=== PATIENT | male | born 1995 | race African-American/Black ===

== ENCOUNTER 2020-03-14 08:40 | Emergency (ER) | payer BC, SELFPAY ==
[2020-03-14 08:52] VITALS: BP 153/80; PULSE 95; RESP 24; TEMP 37.2; O2SAT 98
--- NOTE | 2020-03-14 08:57 | ED.LOWEXIN ---
HPI - Extremity Injury (Lower) General Chief Complaint: Extremity Injury, Lower Stated Complaint: toe pain Time Seen by Provider: 03/14/20 08:57 Source: patient and RN notes reviewed History of Present Illness HPI Narrative: Patient is a 24-year-old male who presents the urgent care with complaints of right great toe pain and swelling. Patient states that it started a couple days ago and seems to have gotten worse. Patient does have his yearly appointment with his technician assistant on Tuesday but did not think he could wait. Patient is diabetic and is worried about infection. Patient also reports of wearing steel toed boots for work which seems to be making it worse . No other acute complaints. Denies any fever, chills, nausea, vomiting. No acute distress noted. Patient read the plan of care. Related Data Home Medications Medication Instructions Recorded Confirmed insulin aspart U-100 [Novolog 1 sliding scale dose SUBCUT 03/14/20 03/14/20 U-100 Insulin aspart] USEASDIRECTD Allergies Allergy/AdvReac Type Severity Reaction Status Date / Time No Known Allergies Allergy Verified 03/14/20 09:08 Review of Systems Review of Systems: Narrative: CONSTITUTIONAL: Denies fever, chills, or sweats. EYES: Denies visual changes, redness, or discharge. ENT: Denies rhinorrhea, congestion, sore throat, or otalgia. CARDIOVASCULAR: Denies chest pain, palpitations, or edema. RESPIRATORY: Denies cough or dyspnea. GASTROINTESTINAL: Denies abdominal pain, nausea, vomiting, or diarrhea. GENITOURINARY: Denies dysuria or hematuria. SKIN: Denies rash or itching. MUSCULOSKELETAL: Reports of right great toe pain and swelling with redness NEUROLOGIC: Denies headache, numbness, or weakness. All other systems reviewed are negative, except as documented in HPI. PMFSH Comments At the time of my signature, I reviewed and agree with the nursing past medical, surgical, social, and family history. There is no relevant family history pertinent to the patient complaint. Exam Narrative: Exam Narrative: GENERAL: This is a well-nourished, well-developed patient, in no apparent distress. HEAD: normocephalic, atraumatic. EYES: PERRL. Sclera clear/white. Vision is grossly intact. EARS: External ears normal NOSE: External nose normal with no obvious nasal discharge THROAT: Mucous membranes moist NECK: Neck supple SKIN: warm, intact with no suspicious lesions or rash, good texture and turgor. NEURO: awake, alert, and oriented to person, place and time. There were no obvious focal neurologic abnormalities. EXTREMITIES: Mild erythema and edema noted to the right great toe without tenderness. Positive strong right pedal pulse with capillary refill less than 2 seconds. Course Vital Signs Vital signs: Vital Signs Temperature 98.9 F 03/14/20 08:52 Pulse Rate 95 03/14/20 08:52 Respiratory Rate 24 H 03/14/20 08:52 Blood Pressure 153/80 H 03/14/20 08:52 Pulse Oximetry 98 03/14/20 08:52 Temperature 98.9 F 03/14/20 08:52 Pulse Rate 95 03/14/20 08:52 Respiratory Rate 24 H 03/14/20 08:52 Blood Pressure 153/80 H 03/14/20 08:52 Pulse Oximetry 98 03/14/20 08:52 Reviewed?patient is informed that they may have pre-hypertension or hypertension based on a blood pressure reading in the department. I recommend the patient call the primary care provider listed on their discharge instructions or a physician of their choice this week to arrange follow-up for further evaluation of possible pre-hypertension or hypertension. MDM - Extremity Injury (Lower) MDM Narrative Medical decision making narrative: Advised the patient to soak the right great toe twice a day and plain Dial soap and water or may use plain Epson salt soaks. Warm water is sufficient, you do not need to use scorched and water. Complete oral antibiotic regimen as prescribed. Make sure to eat and drink with the medication. Speak to your technician assistant regarding a toe separator. Make sure to ta
== END 2020-03-14 09:15 | disposition home or self-care (01) ==
PROVIDERS: Emergency Provider Nurse Practitioner Family; PCP Nurse Practitioner Family
DX: L03.031 Cellulitis of right toe (principal); E11.9 Type 2 diabetes mellitus without complications; Z79.4 Long term (current) use of insulin; Z96.41 Presence of insulin pump (external) (internal); R03.0 Elevated blood-pressure reading, without diagnosis of hypertension
CPT/HCPCS: 99213; G0463

== ENCOUNTER 2024-08-16 08:11 | Emergency (ER) | payer BC, SELFPAY ==
--- NOTE | 2024-08-16 08:34 | ED.URI ---
HPI - URI/Sore Throat General Chief Complaint: Upper Respiratory Infection Stated Complaint: Vomiting/Fever/Chest Congestion Source: patient, RN notes reviewed and old records reviewed Mode of arrival: ambulatory Limitations: no limitations History of Present Illness HPI Narrative: 28-year-old male presents to [facility] with complaints of fever, body aches, chest congestion, and vomiting for the past 3 days. Patient reports last time he vomited was at 3:00 a.m. has been drinking Pedialyte has also been taking Tylenol and ibuprofen for fevers up to 102F last night. Patient is a type 1 diabetic on insulin pump and Dexcom with blood sugar reading to 209 at this time. Patient reports some rib discomfort laterally on both sides related to cough which is productive at times. MD elicited complaint: fever, cough and other (Vomiting) Onset (ago): day(s) (3) Severity: moderate Able to tolerate fluids by mouth: Yes Treatments prior to arrival: acetaminophen and ibuprofen Related Data Home Medications Medication Instructions Recorded Confirmed insulin aspart U-100 100 unit/mL 1 sliding scale dose subcut 03/14/20 08/16/24 subcutaneous solution (Novolog USEASDIRECTD U-100 Insulin aspart) betamethasone valerate 0.1 % lotion topical 08/16/24 08/16/24 insulin lispro 100 unit/mL 08/16/24 subcutaneous solution (Humalog U-100 Insulin) lisinopril 5 mg tablet 5 mg PO DAILY 08/16/24 08/16/24 Allergies Allergy/AdvReac Type Severity Reaction Status Date / Time No Known Allergies Allergy Verified 03/14/20 09:08 Review of Systems Review of Systems: CONSTITUTIONAL: Reports malaise, chills, sweats, or fever. EYES: Denies visual changes, redness, or discharge. ENT: Reports rhinorrhea, congestion, no sinus pain, no otalgia and positive for some sore throat. CARDIOVASCULAR: Denies chest pain, palpitations, or edema. RESPIRATORY: Reports cough.? Denies dyspnea. GASTROINTESTINAL: Denies abdominal pain, positive for nausea, vomiting, denies diarrhea SKIN: Denies rash or itching. MUSCULOSKELETAL: Reports myalgia. NEUROLOGIC: Denies headache. All systems reviewed & are unremarkable except as noted in HPI and below PMFSH Past Medical History Medical History (Updated 08/18/24 @ 23:38 by Deandra Pete NP) Diabetes mellitus Type I Hypertension Social History Social History (Updated 08/16/24 @ 09:09 by Deandra Pete NP) Smoking status: Never smoker Gender identity (if verbalized by the patient): Male Comments At time of signature, agree with nursing past medical, surgical, social and family history. There is no relevant family history pertinent to the presenting complaint Exam Narrative: GENERAL: Well-appearing, well-nourished, and in no acute distress. HEAD: Normocephalic EYES: PERRLA, conjunctivae clear ENT: Nares clear, turbinates edematous and erythematous, clear discharge. Mucous membranes moist. TM pearly bartholomew with dull light reflex bilaterally; no tragal tenderness. Oropharynx erythematous without lesions. Tonsils mildly enlarged and without exudate, no drooling, no hoarseness, no trismus, uvula midline.post nasal drainage NECK: Supple. No lymphadenopathy CHEST: Clear to auscultation, breath sounds equal. No wheezing, rhonchi, rales, or stridor. No respiratory distress, speaks in full sentences. productive cough SAO2 98 % on room air HEART: Regular rate and rhythm. No murmur heard. SKIN: Warm, dry, no rash. NEURO: Alert and oriented x3. PSYCH: Normal mood and affect Course Course Emergency Course: Patient is aware of diagnosis, understands and agrees to treatment plan.? Anticipatory guidance given.? Patient agrees to follow-up as directed and is aware of reasons to seek care at the emergency department. Portions of this record may have been created with voice recognition software Level of Care: Express Care Visit Vital Signs Vital signs: Vital Signs Temperature 36.8 C 08/16/24 08:47 Pulse Rate 85 08/16/24 08:47 Respiratory Rate 16 08/16/24 08:47 Blood Pressure 140/87 08/16/24 08:47 Pulse Oximetry 98 08/16/24 08:47 Oxygen Delivery Room Air 08/16/24 08:47 Temperature 36.8 C 08/16/24 08:47 Pulse Rate 85 08/16/24 08:47 Respiratory Rate 16 08/16/24 08:47 Blood Pressure 140/87 08/16/24 08:47 Pulse Oximetry 98 08/16/24 08:47 Oxygen Delivery Room Air 08/16/24 08:47 Reviewed MDM - URI/Sore Throat MDM Narrative Medical decision making narrative: Differential diagnosis considered: Escobar virus, strep pharyngitis, allergic rhinitis, upper respiratory tract infection, sinusitis, rhinosinusitis, nasopharyngitis. viral pharyngitis, otitis media, otitis externa, pneumonia, bronchitis, viral cough syndrome, viral syndrome, and influenza.? Exam findings show no acute concerns or changes; patient is non-toxic appearing and is in no distress.? Patient is appropriate for outpatient treatment and follow-up. Differential Diagnosis Differential diagnosis: Likely upper respiratory infection, viral infection, pharyngitis and other (nausea and vomiting, acute cough) Medical Records Attestation: I reviewed the patient's medical records. Lab Data Attestation: I reviewed the patient's lab results. Lab results narrative: COVID antigen negative, Influenza A negative , Influenza B negative Labs: Lab Results 08/16/24 08/16/24 Range/Units 09:21 09:22 POC Influenza A Ag Negative (Negative) POC Influenza B Ag Negative (Negative) POC SARS CoV-2 Ag Negative (Negative) reviewed Critical Care Time Critical Care Time Critical Care Time: No Discharge Plan Discharge Clinical Impression: Upper respiratory infection with cough and congestion, Nausea & vomiting Patient Disposition: Home, Self-Care Condition: Stable Instructions: Antibiotic Form, Upper Respiratory Infection (ED), Acute Nausea and Vomiting (ED), Acute Cough (ED) Additional Instructions: Increase fluids especially juices and water [id number] cough and cold medicine of your choice for your symptoms Continue your inhaler/nebulizer as directed Zyrtec Claritin or Roxane daily include Coricidin brand decongestant Tylenol or ibuprofen for any fever pain heat to the face 20-30 minutes 4-6 times a day for pain Salt water gargles, throat lozenges or throat sprays as desired Antibiotic as directed--finished the medication Zofran for nausea and vomiting If your symptoms persist, change or worsen significantly before you can contact your personal physician then please, without delay, go to the emergency department for further evaluation. Follow-up with PCP in 7-10 days or sooner if needed Follow up with PCP soon in regards to your blood pressure which is elevated above threshold for referral. Blood pressure above 120/80 may indicate pre-hypertension. Monitor blood sugars carefully avoid any spicy foods, caffeine products, light diet Prescriptions: New amoxicillin-pot clavulanate 875-125 mg tablet 1 tablet PO Q12H Qty: 20 0RF Rx Instructions: Take all medication use probiotic while on this medicine was take with food ondansetron 4 mg tablet,disintegrating 4 mg PO Q6H PRN (Reason: nausea and vomiting) Qty: 20 0RF albuterol sulfate 90 mcg/actuation HFA aerosol inhaler 2 puff inhalation QID PRN (Reason: shortness of breath or wheezing) Qty: 6.7 0RF No Action insulin aspart U-100 [Novolog U-100 Insulin aspart] 100 unit/mL Solution 1 sliding scale dose SUBCUT USEASDIRECTD Rx Instructions: INSULIN PUMP betamethasone valerate 0.1 % lotion TOPICAL lisinopril 5 mg tablet 5 mg PO DAILY insulin lispro [Humalog U-100 Insulin] 100 unit/mL solution Rx Instructions: as directed Follow-up/Referrals: PHYSICIAN,CABLE CUTTER AND SWAGER [Primary Care Provider] - Stand Alone Forms: Work/School Release IP Time of Disposition: 09:33 Quality Yves Coma Scale Eyes: Open Verbal: Oriented and Alert Motor: Follows Commands [place]ar[place] Coma Total Score: 15
[2024-08-16 08:47] VITALS: BP 140/87; PULSE 85; RESP 16; TEMP 36.8; O2SAT 98
[2024-08-16 09:23] LABS: EDINFLUASCREEN Negative (Negative); EDINFLUBSCREEN Negative (Negative)
[2024-08-16 09:23] LABS: EDCOVIDSCREEN Negative (Negative)
== END 2024-08-16 09:53 | disposition home or self-care (01) ==
PROVIDERS: Emergency Provider Registered Nurse
DX: J06.9 Acute upper respiratory infection, unspecified (principal); R05.9 Cough, unspecified; R11.2 Nausea with vomiting, unspecified; Z20.822 Contact with and (suspected) exposure to COVID-19; E10.9 Type 1 diabetes mellitus without complications; I10 Essential (primary) hypertension
CPT/HCPCS: 87426; 87804; 99213; G0463

== ENCOUNTER 2024-11-23 12:48 | Emergency (ER) | payer BC, SELFPAY ==
[2024-11-23 12:52] VITALS: BP 159/98; PULSE 95; RESP 16; TEMP 36.9; O2SAT 100
--- OUTSIDE RECORDS SUMMARY | 2024-11-23 12:55 | XMS_ITS | Clinical Summary ---
Author Organization [facility] Address [address] [place] [address] Phone Care Team Providers Care Guard Immigration Name Role Phone Brad Pillai APRN, GABRIELLE Primary Care Provider Allergies No known active allergies Medications HUMALOG 100 UNIT/ML Solution 7 Active famotidine (PEPCID) 10 MG Tablet Take 1 Tab by mouth 2 times daily. 180 Tab 7 Active Additional Information Patient not taking.Reported on 06/21/2018 ondansetron (ZOFRAN-ODT) 4 MG TABLET DISPERSIBLE Take 1 Tab by mouth every 8 hours as needed for Nausea. 10 Tab 8 Active Additional Information Patient not taking.Reported on 06/21/2018 loperamide (IMODIUM) 2 MG Capsule Take 1 Cap by mouth as needed for Diarrhea. 30 Cap 8 Active Additional Information Patient not taking.Reported on 06/21/2018 ROSENDO CONTOUR NEXT TEST Strip TEST FOUR TIMES DAILY 400 Strip 3 8 Active Additional Information Patient not taking.Reported on 06/21/2018 albuterol 108 (90 Base) MCG/ACT Aerosol Solution take 2 Puffs by inhalation every 4 hours as needed for Wheezing. 8.5 g 8 Active Additional Information Patient not taking.Reported on 11/08/2018 predniSONE (DELTASONE) 20 MG Tablet 3 po q am times 2 days 2 po q am times 2 days 1 po q am times 3 days take medication in am with food. 13 Tab 8 Active Additional Information Patient not taking.Reported on 11/08/2018 dicyclomine (BENTYL) 10 MG Capsule Take 1 Cap by mouth 3 times daily. 12 Cap 9 Active Active Problems Problem Noted Date Diagnosed Date Type 1 diabetes mellitus without complication Chest pain 08/29/2017 Elevated troponin 08/29/2017 Nausea and vomiting 08/29/2017 Social History Tobacco Use Types Packs/Day Years Used Date Smoking Tobacco: Never Smokeless Tobacco: Never Tobacco Cessation:Ready to Q uit: No; Counseling Given: Yes Alcohol Use Standard Drinks/Week Comments No 0 (1 standard drink = 0.6 oz pur e alcohol) Sexually Active Control Partners Comments Yes Female Sex and Gender Information Value Date Recorded Sex Assigned at Not on file Legal Sex Male 7:59 PM CDT Gender Identity Not on file Sexual Orientation Not on file Last Filed Vital Signs Vital Sign Reading Time Taken Comments Blood Pressure 101/76 11/08/2018 2:47 PM DETAIL SERGEANT Pulse 77 11/08/2018 2:47 PM DETAIL SERGEANT Temperature 36.8 C (98.2 F) 11/08/2018 2:47 PM DETAIL SERGEANT Respiratory Rate 16 11/08/2018 2:47 PM DETAIL SERGEANT Oxygen Saturation 98% 11/08/2018 2:47 PM DETAIL SERGEANT Inhaled Oxygen Concentration - - Weight 81.6 kg (180 lb) 11/08/2018 2:47 PM DETAIL SERGEANT Height 175.3 cm (5' 9 ) 11/08/2018 2:47 PM DETAIL SERGEANT Body Mass Index 26.58 11/08/2018 2:47 PM DETAIL SERGEANT Plan of Treatment Health Maintenance Due Date Last Done Comments Diabetes: Eye Exam 1995 Diabetes: Foot Exam 1995 Hepatitis C Virus (HCV) Screening 1995 Pneumococcal Immunization Combined (2 of 3 - PCV) 10/04/1998 10/04/1997 Diabetes: Hemoglobin A1c 02/26/2018 017, 12/01/2016, 10/07/2016, Additional history exists Diabetes: Nephropathy Screening 12/07/2018 12/07/2017, 08/28/2017, 02/03/2016 Influenza Immunization (#1) 06/17/202408/17, 06/26/1997, 08/07/1996 SARS-COV-2 Immunization (2023-25 season) 2024 Respiratory Syncytial Virus (RSV) Immunization (Adult) (1 - 1-dose 75+ series) 2070 Hepatitis B Immunization Completed 996, 1995, 1995 Meningococcal Immunization (ACWY) Aged Out 10/09/2008 No longer eligible based on patient's age to complete this topic DTaP/Tdap/Td Immunization Discontinued 2015, 01/27/2000, 04/29/1997, Additional history exists TdaP Immunization Completed 11/28/2015 Rotavirus Immunization Aged Out No lo nger eligible based on patient's age to complete this topic Procedures Procedure Name Priority Date/Time Associated Diagnosis Comments CMP (COMPREHENSIVE METABOLIC PANEL) STAT 12/07/2017 3:15 PM DETAIL SERGEANT HEMOGLOBIN A1C W/ ESTIMATED GLUCOSE Routine 08/29/2017 5:38 AM DETAIL SERGEANT from Last 3 Months or Most Recently Relevant to Health Maintenance Results * (ABNORMAL) CMP (Comprehensive Metabolic Panel) (12/07/2017 3:15 PM DETAIL SERGEANT) SODIUM 137 131 - 143 mmol/L 12/07/2017 4:20 PM DETAIL SERGEANT [facility] POTASSIUM 3.6 3.5 - 5.1 mmol/L 12/07/2017 4:20 PM DETAIL SERGEANT [facility] CHLORIDE 100 100 - 110 mmol/L 12/07/2017 4:20 PM [facility] CO2, VENOUS 27 22 - 32 mmol/L 12/07/2017 4:20 PM DETAIL SERGEANT [facility] ANION GAP 13.6 8.0 - 20.0 mmol/L 12/07/2017 4:20 PM DETAIL SERGEANT [facility] GLUCOSE 172(H) 70 - 105 mg/dL 12/07/2017 4:20 PM [facility] BUN 16 10 - 31 mg/dL 12/07/2017 4:20 PM [facility] CREATININE, BLOOD 0.92 0.60 - 1.30 mg/dL 12/07/2017 4:20 PM [facility] BUN/CREATININE RATIO 17 12 - 20 ratio 12/07/2017 4:20 PM [facility] TOTAL PROTEIN 7.6 6.0 - 8.3 g/dL 12/07/2017 4:20 PM [facility] ALBUMIN 4.5 3.5 - 5.2 g/dL 12/07/2017 4:20 PM [facility] A/G RATIO 1.5 1.0 - 2.0 12/07/2017 4:20 PM [facility] CALCIUM 9.4 8.9 - 10.3 mg/dL 12/07/2017 4:20 PM [facility] T BILI 0.5 0.3 - 1.2 mg/dL 12/07/2017 4:20 PM [facility] SGOT (AST) 21 1 - 40 U/L 12/07/2017 4:20 PM [facility] SGPT (ALT) 26 1 - 40 U/L 12/07/2017 4:20 PM [facility] ALKALINE PHOSPHATASE 114 40 - 130 U/L 12/07/2017 4:20 PM [facility] GFR, EST. NONAFRICAN >60 >=60 12/07/2017 4:20 PM [facility] GFR, EST. >60 >=60 12/07/2017 4:20 PM [facility] Comment: Creatinine Clearance is the preferred criteria for selecting drug dose adjustments in renally impaired patients. The GFR is provided as additional pertinent clinical information. GFR is reported in mL/min/1.73 sq m. Blood specimen (specimen) Butterfly Puncture / Unknown 12/07/2017 3:15 PM DETAIL SERGEANT 12/07/2017 3:37 PM DETAIL SERGEANT us Damion Blanco MD CHEMISTRY ORDERABLES Final Result [facility] [address] [place] [address] * (ABNORMAL) Hemoglobin A1C w/ Estimated Glucose (08/29/2017 5:38 AM DETAIL SERGEANT) HGB-A1C 11.5(H) 4.4 - 6.4 % 08/29/2017 6:39 AM DETAIL SERGEANT [facility] Est Average Glucose 283.4 mg/dL 08/29/2017 6:39 AM DETAIL SERGEANT [facility] Blood specimen (specimen) Venipuncture / Unknown 08/29/2017 5:38 AM DETAIL SERGEANT 08/29/2017 5:43 AM DETAIL SERGEANT Narrative [facility] - 08/29/2017 6:39 AM DETAIL SERGEANT HEMOGLOBIN A1C: DIABETIC PATIENTS: WELL-CONTROLLED: 6.2 - 7.0 INTERMEDIATE WELL-CONTROLLED: 7.0 - 9.0 POORLY-CONTROLLED: >9.0 Roman Ruvalcaba MD CHEMISTRY ORDERABLES Final Re sult [facility] [address] [place] [address] from Last 3 Months or Most Recently Relevant to Health Maintenance Insurance MEDICAID [facility] Care Teams Guard Immigration Relationship Specialty Start Date End Date Brad Pillai APRN, BOARDING ROOM FIXER [address] [place] [address] PCP - General Certified Nurse Practitioner 08/29/17
--- OUTSIDE RECORDS SUMMARY | 2024-11-23 12:55 | XMS_ITS | Data Portability ---
Author Organization [place] [facility] [employer], Main Office Address [address] [place] [address] Care Team Providers Care Girls Swimming Coach Name Role Phone KILEY JAIMES Primary Care Provider [phone] Assessment No assessment recorded. Plan of Treatment Reminders Order Date Submit Date Provider Last Modified By Organization Details Last Modified Time Details Appointments None recorded. Lab HbA1c (hemoglob in A1c), blood [address] ([facility]), [address] [place], [address], 3 12:40:03 CMP, serum or plasma [address] ([facility]), [address] [place], [address], 3 12:40:03 lipid panel, serum [address] ([facility]), [address] [place], [address], 3 12:40:03 microalbu min/creat inine, mass ratio, urine [email or web address] [facility] ([facility]), [address] [place], [address], 3 10:37:03 TSH + free T4, serum [address] ([facility]), [address] [place], [address], 3 12:40:03 testoster one, free + total, serum [address] ([facility]), [address] [place], [address], 3 09:16:37 HbA1c (hemoglob in A1c), blood [address] ([facility]), [address] [place], [address], 3 09:16:37 microalbu min/creat inine, mass ratio, urine 2022 023 [facility] ([facility] Scheduling), [address] [place], [address], 3 07:29:34 HbA1c (hemoglob in A1c), blood [address] ([facility]uling), [address] [place], [address], 5 12:33:46 CMP, serum or plasma [address] ([facility]), [address] [place], [address], 5 12:34:22 microalbu min, urine [address] ([facility]), [address] [place], [address], 5 12:37:04 lipid panel, serum [address] ([facility]), [address] [place], [address], 5 12:36:03 CBC w/ auto diff [address] ([facility]), [address] [place], [address], 5 12:35:12 vitamin D, 25-hydrox y, total, serum [address] ([facility]uling), [address] [place], [address], 5 12:35:41 hepatitis C virus Ab, serum [address] ([facility]), [address] [place], [address], 5 12:34:48 Referral endocrino logy referral - Please call patient to schedule an appointme nt. Thank you 2024 025 [facility] [place], [facility] [address], [place], [address], 5 13:20:32 Procedures None recorded. Surgeries None recorded. Imaging None recorded. Medication Orders Gvoke HypoPen 2-Pack 1 mg/0.2 mL subcutane ous auto-inje ctor 2022 [email or web address] [place] [address] [facility] [id number], [address] [place], [place], [id number], 5 12:04:48 tadalafil 20 mg tablet 2022 023 [email or web address] [facility], [address] [place], [place], [id number], 5 12:05:22 Humalog U-100 Insulin 100 unit/mL subcutane ous solution 2024 025 [id number] [address] [facility], [id number], 12:19:21 Patient TargetsNo targets recorded. Patient InstructionsNo instructions recorded. Reason for Referral Endocrinology Referral for U ncontrolled type 1 diabetes mellitus Please call patient to schedule an appointment. Thank you Referring Physician: Violetta Schmid, Family Medicine, Encounter Date: 10/25/2024 Results Created Date Observation Date Name Description Value Unit Range Abnormal Flag Note LastModifiedBy Organization Detail LastModifiedTime 12/02/1912/04/2022 C-PEP TIDE, SERUM C-peptide <0.1 NG/mL 1.1-4. 4 low C-Pep tide refer ence inter barrett is for valei alo casiano nts. Perfo rmed at: [place] [id number] [facility] Lab Direc tor: Miguel hinojosa PhD, Phone : [phone] Not Available [facility] (Lab) [address] [place], [address], 12/04/2022 14:22:09 12/02/19 23 12/02/2022 TSH thyroid-stim ulating hormone 0.933 uIU/m L 0.465- 4.680 Not Available [facility] (Lab) [address] [place], [address], 12/02/2022 22:57:49 12/02/19 23 12/02/2022 T4 FREE free T4 1.31 NG/dL 0.78-2 .19 Not Available [facility] (Lab) [address] [place], [address], 12/02/2022 22:43:31 12/02/19 23 12/02/2022 HEMOG LOBIN A1C HA1C 11.6 % 4.0-6. 0 high Diabe gal Scree apolinar Crite minerva: <5.7% Consi stent with absen ce of diabe gal 5.7-6 .4% Consi stent with incre ased risk for diabe gal (pred iabet es) >OR=6 .5% Consi stent with diabe gal REFER ENCE: Diabe gal Care 2016, 39(Parker ppl.1 ):s13 -s22 Not Available [facility] (Lab) [address] [place], [address], 12/02/2022 21:28:34 12/02/19 23 12/02/2022 LIPID PANEL cholesterol 191 mg/dL 140-19 9 NIH RACHEL NSUS RECOM MENDA TION FOR TORO STERO L: ADULT CHILD LOW RISK: <200 <170 BORDE RLINE : <200- 239 ----- HIGH RISK: >240 >200 Not Available [facility] (Lab) [address] [place], [address], 12/02/2022 21:14:08 12/02/19 23 12/02/2022 LIPID PANEL triglyceride s 105 mg/dL 0-150 NIH RACHEL NSUS REPOR T RECOM MENDA TION FOR TRIGL YCERI JEREMY: ADULT CHILD LOW RISK: <150 ----- BODER LINE: 150-1 99 ----- HIGH RISK: >200 ----- Not Available [facility] (Lab) [address] [place], [address], 12/02/2022 21:14:08 12/02/19 23 12/02/2022 LIPID PANEL HDL cholesterol 48 mg/dL 40- Not Available [facility] (Lab) [address] [place], [address], 12/02/2022 21:14:08 12/02/19 23 12/02/2022 LIPID PANEL LDL cholesterol, calculated 122 mg/dL 0-130 NIH RACHEL NSUS REPOR T RECOM MENDA TIONS FOR LDL: ADULT CHILD LOW RISK <130 <110 (OPTI MAL LDL) <100 ----- BORDE RLINE : 130-1 59 ----- HIGH RISK: >160 >130 A TRIGL YCERI DE RESUL T >400 INVAL IDATE S THE CALCU LATIO N FOR LDL FRACT IONAT ION - THE LDL RESUL T WILL NOT BE REPOR MILLIE. Not Available [facility] (Lab) [address] [place], [address], 12/02/2022 21:14:08 12/02/19 23 12/02/2022 COMPR EHENS ДМИТРИЙ METAB OLIC PANEL sodium 134 mmol/ L 137-14 5 low Not Available [facility] (Lab) [address] [place], [address], 12/02/2022 21:14:05 12/02/19 23 12/02/2022 COMPR EHENS ДМИТРИЙ METAB OLIC PANEL potassium 4.7 mmol/ L 3.5-5. 1 Not Available [facility] (Lab) [address] [place], [address], 12/02/2022 21:14:05 12/02/19 23 12/02/2022 COMPR EHENS ДМИТРИЙ METAB OLIC PANEL chloride 101 mmol/ L 98-107 Not Available [facility] (Lab) [address] [place], [address], 12/02/2022 21:14:05 12/02/19 23 12/02/2022 COMPR EHENS ДМИТРИЙ METAB OLIC PANEL carbon dioxide 23 mmol/ L 22-30 Not Available [facility] (Lab) [address] [place], [address], 12/02/2022 21:14:05 12/02/19 23 12/02/2022 COMPR EHENS ДМИТРИЙ METAB OLIC PANEL anion gap 14.7 mmol/ L 14-22 Not Available [facility] (Lab) [address] [place], [address], 12/02/2022 21:14:05 12/02/19 23 12/02/2022 COMPR EHENS ДМИТРИЙ METAB OLIC PANEL glucose 405 mg/dL 70-99 high Not Available [facility] (Lab) [address] [place], [address], 12/02/2022 21:14:05 12/02/19 23 12/02/2022 COMPR EHENS ДМИТРИЙ METAB OLIC PANEL BUN 17 mg/dL 8-19 Not Available [facility] (Lab) [address] [place], [address], 12/02/2022 21:14:05 12/02/19 23 12/02/2022 COMPR EHENS ДМИТРИЙ METAB OLIC PANEL creatinine 0.93 mg/dL 0.66-1 .25 Not Available [facility] (Lab) [address], [place], [address], 12/02/2022 21:14:05 12/02/19 23 12/02/2022 COMPR EHENS ДМИТРИЙ METAB OLIC PANEL GFR >60 Refer ence Range : [place] ge GFR Healt hy Adult : >60 mL/mi n/1.7 3 m2 Chron ic Kidne y Disea se: 15-60 mL/mi n/1.7 3 m2 Kidne y Failu re: <15/m L/min /1.73 m2 www.n iddk. nih.g ov The MDRD study equat ion has not been valid ated in child kristel <18 years of age; pregn ant women ; the elder ly >85 years of age; or in some racia l or ethni c subgr oups, such as [facility] nics. Outsi de the valid ated abbey eters , estim ated GFR is less accur ate, requi ring clini jennifer judgm ent on a case- by-ca se basis . Clini jennifer inter preta tion for other races and ages must be made by the clini trey. The MDRD study equat ion has not been valid ated for the evalu ation of serum creat inine relat ed to nutri sienna l statu s or medic ation usage . For perso ns <18 years of age, a pedia tric GFR calcu lator is avail able on the [facility] websi te: https ://aiyana w.tomi law.o rg/pr ofess ional s/kdo qi/gf r_cal culat or Not Available [facility] (Lab) [address] [place], [address], 12/02/2022 21:14:05 12/02/19 23 12/02/2022 COMPR EHENS ДМИТРИЙ METAB OLIC PANEL alkaline phosphatase 165 U/L 38-126 high Not Available [facility] (Lab) [address] [place], [address], 12/02/2022 21:14:05 12/02/19 23 12/02/2022 COMPR EHENS ДМИТРИЙ METAB OLIC PANEL alanine aminotransfe rase 36 U/L 0-50 Not Available [facility] (Lab) [address] [place], [address], 12/02/2022 21:14:05 12/02/19 23 12/02/2022 COMPR EHENS ДМИТРИЙ METAB OLIC PANEL aspartate aminotransfe rase 30 U/L 15-46 Not Available [facility] (Lab) [address] [place], [address], 12/02/2022 21:14:05 12/02/19 23 12/02/2022 COMPR EHENS ДМИТРИЙ METAB OLIC PANEL bilirubin, total 0.40 mg/dL 0.20-1 .30 Not Available [facility] (Lab) [address] [place], [address], 12/02/2022 21:14:05 12/02/19 23 12/02/2022 COMPR EHENS ДМИТРИЙ METAB OLIC PANEL calcium 9.1 mg/dL 8.4-10 .2 Not Available [facility] (Lab) [address] [place], [address], 12/02/2022 21:14:05 12/02/19 23 12/02/2022 COMPR EHENS ДМИТРИЙ METAB OLIC PANEL total protein 6.8 g/dL 6.3-8. 2 Not Available [facility] (Lab) [address] [place], [address], 12/02/2022 21:14:05 12/02/19 23 12/02/2022 COMPR EHENS ДМИТРИЙ METAB OLIC PANEL albumin 4.0 g/dL 3.4-5. 0 Not Available [facility] (Lab) [address] [place], [address], 12/02/2022 21:14:05 12/02/19 23 12/02/2022 COMPR EHENS ДМИТРИЙ METAB OLIC PANEL globulin 2.8 g/dL 2.6-4. 2 Not Available [facility] (Lab) [address] [place], [address], 12/02/2022 21:14:05 12/02/19 23 12/02/2022 COMPR EHENS ДМИТРИЙ METAB OLIC PANEL A/G ratio 1.4 ratio 1.0-2. 0 Not Available [facility] (Lab) [address] [place], [address], 12/02/2022 21:14:05 12/02/19 23 12/02/2022 MICRO ALBUM N RNDM W/CRE AT RATIO ur creat 56.40 mg/dL REFER ENCE RANGE NOT ESTAB LISHE D FOR RANDO M URINE CREAT ININE Not Available [facility] (Lab) [address] [place], [address], 12/02/2022 21:12:07 12/02/19 23 12/02/2022 MICRO ALBUM N RNDM W/CRE AT RATIO microalbumin , urine 187.2 mg/L 0.0-16 .6 high Not Available [facility] (Lab) [address] [place], [address], 12/02/2022 21:12:07 12/02/19 23 12/02/2022 MICRO ALBUM N RNDM W/CRE AT RATIO microalbumin /creatinine ratio 332 mcg/m g 0-29 high THE AMERI CAN DIABE GAL ASSOC IATIO N DEFIN ES ABNOR MALIT IES IN ALBUM IN EXCRE TION FOLLO WS: CATEG ORY RESUL T (MCG/ MG CREAT ININE ) EMANUEL L <30 MICRO ALBUM INURI A 30-29 9 CLINI JENNIFER ALBUM INURI A > OR = 300 THE ADA RECOM MENDS THAT 2 OF 2 SPECI MENS COLLE CTED WITHI N A 3- TO 6-MON TH PERIO D BE ABNOR MAL BEFOR E CONSI CAROLINE G A PATIE NT TO HAVE CROSS ED ONE OF THESE DIAGN OSTIC THRES HOLDS . REFER ENCE: DIABE GAL CARE, VOL. 26: S94-S , 2002 Not Available [facility] (Lab) [address] [place], [address], 12/02/2022 21:12:07 04/26/20 23 04/26/2023 MICRO ALBUM N RNDM W/CRE AT RATIO ur creat 81.32 mg/dL REFER ENCE RANGE NOT ESTAB LISHE D FOR RANDO M URINE CREAT ININE Not Available [facility] (Lab) [address] [place], [address], 04/26/2023 21:37:17 04/26/20 23 04/26/2023 MICRO ALBUM N RNDM W/CRE AT RATIO microalbumin , urine 439.0 mg/L 0.0-16 .6 high Not Available [facility] (Lab) [address] [place], [address], 04/26/2023 21:37:17 04/26/20 23 04/26/2023 MICRO ALBUM N RNDM W/CRE AT RATIO microalbumin /creatinine ratio 540 mcg/m g 0-29 high THE AMERI CAN DIABE GAL ASSOC IATIO N DEFIN ES ABNOR MALIT IES IN ALBUM IN EXCRE TION FOLLO WS: CATEG ORY RESUL T (MCG/ MG CREAT ININE ) EMANUEL L <30 MICRO ALBUM INURI A 30-29 9 CLINI JENNIFER ALBUM INURI A > OR = 300 THE ADA RECOM MENDS THAT 2 OF 2 SPECI MENS COLLE CTED WITHI N A 3- TO 6-MON TH PERIO D BE ABNOR MAL BEFOR E CONSI CAROLINE G A PATIE NT TO HAVE CROSS ED ONE OF THESE DIAGN OSTIC THRES HOLDS . REFER ENCE: DIABE GAL CARE, VOL. 26: S94-S Tanesha, MEERA OLVERA 2002 Not Available [facility] ([facility]) [address], [place], [address], 04/26/2023 21:37:17 Result Notes None recorded. 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 Petty Kaba APRN [address], [address], [place], [address] , [facility] 4 14:47:02 Type 1 diabetes mellitus without complicat ion 488766131 Completed 201608/29/2017 Petty Kaba APRN [address], [address], [place], [address] , [facility] 4 14:28:23 Uncontrol led type 1 diabetes mellitus 092983463 Active Not Available [facility] 3 08:57:34 Candidias is of skin 40623057 Active Not Available [facility] 3 08:57:34 Diabetes mellitus 26278758 Active Petty Kaba APRN [address], [address], [place], [address] , [place] 4 14:27:17 Candidias is of mouth 00846672 Active Not Available [facility] 3 08:57:34 Erectile dysfuncti on due to type 2 diabetes mellitus 429917348 Active 2022 Petty Kaba APRN [address], [address], [place], [address] , [facility] 4 14:27:25 Type 1 diabetes mellitus 50725531 Active 2022 Josef Block REHABILITATION SERVICES COUNSELOR-C [address], [address], [place], [address] , [facility] [employer] [facility] 3 09:29:33 Semen volume low: 0.5-1 ml 540382308 Active 2022 Josef Block REHABILITATION SERVICES COUNSELOR-C [address], [place], [address] , [facility] 3 10:29:44 Proteinur ia 29801302 Completed 202206/30/2023 Petty MARY Kaba [address], [place] [address], [place], [address] , [facility] 4 14:28:23 Bone density finding 091485775 Active 2023 Petty Kaba APRN [address], [place] [address], [place], [address] , [facility] [employer] [facility] 4 14:27:15 Problem Notes Documentation Provider Name and Address Organization Details Recorded Time Endocrinology Consult Note : [facility] [address], [facility] [address]KGSZHNVP, Bradley (id #[id number], : 1995) Documents sent via fax will include the following message: This fax may contain sensitive and confidential personal health information that is being sent for the sole use of the intended recipient. Unintended recipients are directed to securely destroy any materials received. You are hereby notified that the unauthorized disclosure or other unlawful use of this fax or any personal health information is prohibited. To the extent patient information contained in this fax is subject to 42 CFR Part 2, this regulation prohibits unauthorized disclosure of these records. If you received this fax in error, please visit [email or web address] to notify the sender and confirm that the information will be destroyed. If you do not have internet access, please call to notify the sender and confirm that the information will be destroyed. Thank you for your attention and cooperation. [ID:[id number]][facility] [employer] [address] [place] [address] , Date: 02/10/2023RE: Lamonte Pfeiffer, : 1995, PT ID #[id number] M Rosas [facility], I would like to thank you for referring Lamonte Pfeiffer to our practice for consultation and evaluation of 4 month follow up GLUCOSE--445 , on 02/10/2023. I have enclosed a copy of the office evaluation for your records. Once again, thank you for allowing me to participate in the care of this patient. Sincerely, Electronically Signed by: EVELYN ISAACS MD Encounter Reason/Date 4 month follow up GLUCOSE--445 02/10/2023 - 10:45AM - [facility] Terry Colbert Problems:Reviewed Problems Dermal mycosis Candidiasis of mouth Candidiasis of skin Diabetes mellitus Type 1 diabetes mellitus uncontrolled Paronychia of toe of right foot - Onset: 03/17/2020 Type 1 diabetes mellitus without complication - Onset: 03/17/2020 Allergies: Reviewed Allergies Dust, pollen Medications: Reviewed Medications NameDate Source BD Ultra-Fine Short Pen Needle 31 gauge x 16 06/03/15 filled MIGRATION.[id number] Contour Next Test StripsTEST THREE TIMES DAILY09/14/18 filled MIGRATION.[id number] Dexcom G6 ReceiverUSE IQPMYFGQ42/11/23 filled MIGRATION.[id number] DEXCOM G6 SENSOR DEVICEChange every 10 days01/10/23 renewed Evelyn Isaacs MD Dexcom G6 Transmitter deviceUSE DIRECTED EVERY 90 DAYS11/26/22 filled MIGRATION.[id number] Glucagon Emergency Kit 1 mg solution for xpdftupzy23/29/19 filled MIGRATION.[id number] Gvoke HypoPen 2-Pack 1 mg/0.2 mL subcutaneous auto-injectorInject 1 mg as needed by subcutaneous route as needed for 1 day.02/10/23 prescribed Evelyn Isaacs MD insulin syringe U-100 with needle 1/2 mL 30 gaugeUSE 3 TO 6 TIMES D1 filled MIGRATION.[id number] ketoconazole 2 % shampooAPPLY TO AFFECTED AREAS, LATHER AND LEAVE IN PALCE FOR 5 MINUTES, THEN RINSE OFF WITH WATER ONCE DAILY10/01/17 filled MIGRATION.[id number] NovoLOG U-100 Insulin aspart 100 unit/mL subcutaneous solutionInject 200 unit(s) every 72 hours by subcutaneous route as directed for 30 days.02/10/23 daniel Isaacs MD OneTouch UltraMini kit07/06/15 filled MIGRATION.[id number] ProAir HFA 90 mcg/actuation aerosol biccfgc36/05/18 filled MIGRATION.[id number] Family History: Maternal Grandmother - Diabetes mellitus Paternal Grandmother - Diabetes mellitus Social History:Substance UseDo you or have you ever smoked tobacco?: Current every day smokerHow much tobacco do you smoke?: 1 pack per weekWhat is your current pack years?: 10 - 19 Pack YearsDo you or have you ever used any other forms of tobacco or nicotine?: NoHas tobacco cessation counseling been provided?: NoWhat is your level of alcohol consumption?: OccasionalWhat is your level of caffeine consumption?: OccasionalDiet and ExerciseWhat type of diet are you following?: RegularDo you have any dietary restrictions?: NoWhat is your exercise level?: OccasionalPublic Health and TravelIn the 14 days before symptom onset, have you had close contact with a laboratory-confirmed COVID-19 while that case was ill?: NoIn the 14 days before symptom onset, have you had close contact with a person who is under investigation for COVID-19 while that person was ill?: NoGender Identity and LGBTQ IdentitySexual orientation: Straight or heterosexualSurgical HistoryNone recordedAdditional HistoryNone recordedHistory of Present Illness:27 yo male comes in for follow up in management of poorly controlled type I DM (A1C of 11.6%) found to have significant proteinuria. last seen in Aug/initial visit: at that time we had patient transition to tresiba due to long acting duration of effect and decreased frequency of hypoglycemia associated with it. Start at 20 units once daily at bedtime and patient advised to titrate up or down by 2 units every 4 days until fasting glucose is running 90-120 mg/dL consistently.He was advised to follow a 1:15 carb ratio for her meals if he is eating a starchy carb diet in addition to correction of 1U:50>150 mg/dl on premeal FS prior to meals. we discussed transition to t slim pump and provided dexcom for sensor and glucagon pen for rescue if needed. He has T slim for past 3-4 weeks. He was over 300 mg/dL consistently before going on T slim pump. He is over 200 mg/dL in morning.Day sugars are usually are around 110-120 mg/dL labs from 12/09:191/105/48/122glucose 405 mg/dLCr normalLFT normalcpeptide <0.1 ng/mLa1c of 11.6%191/105/48/122TSH of 0.933 uIU/mlmicroalbumin 332 ug/mg Review of Systems:ROS as noted in the HPIPhysical ExamConstitutional:General Appearance: healthy-appearing, well-nourished, well-developed, not anxious/nervous, and no sweating. Level of Distress: no acute distress. Eyes:Lids and Conjunctivae: no discharge, pallor, lid lag, or periorbital edema and non-injected. Neck:Neck: supple, trachea midline, no masses, and full range of motion. Thyroid: no enlargement or nodules and non-tender. Neck vessels: no carotid bruits or thyroid bruits. Lymph Nodes: no anterior cervical LAD, posterior cervical LAD, submandibular LAD, submental LAD, preauricular LAD, or supraclavicular LAD. Cardiovascular:Apical Impulse: not displaced. Heart Auscultation: normal S1 and S2; no murmurs, rubs, or gallops; and regular rate and rhythm. Lungs:Auscultation: no wheezing, rales/crackles, or rhonchi and breath sounds normal, good air movement, and clear to auscultation. Psychiatric:Mental Status: normal mood and affect, no diffuse anxiety or paranoid ideations, and active and alert.Procedure DocumentationNone recordedAssessment/Plan1. Type 1 diabetes mellitus uncontrolled-a1c of 11.5% but from November prior to going on T slim pump- will have patient repeat labwork in 4-6 weeks on new setting changes and RTC in 2 months Wll adjust settings as follows:12 am to 7 am at 0.8 u/hr7 am to noon at 0.6 u/hrnoon to 12 am at 0.7 u/hrCut carb ratio down to 1:10 for lunch and dinner and keep 1:12 for breakfast Recommended patient drink a protein shake before his workouts and do not bolus to help with glucose control. We have increased his setting by 10% during workout timeframe to help compensate for hyperglycemia. Will provide GVoke glucagon pen to help with any acute hypoglycemia that cannot be corrected with oral glucose. Spent up to 21 minutes preparing to see the patient (eg, review of tests), obtaining and/or reviewing separately obtained history, performing a medically appropriate examination and evaluation, counseling and educating the patient, ordering medications, tests, along with documenting clinical information in the electronic health record, independently interpreting results and communicating results to the patient. RTC in 2 months. Patient was provided a handwritten lab order which contains our fax number. If he chooses to go outside of the [employer] system to obtain labwork he was advised to provide our fax number and my information to the lab he will be obtaining labwork from in order to have his labs properly forwarded over for me to review so there is no loss of follow up due to use of outside network. He was also advised to contact our clinic informing us that he has completed his labwork so we are aware we will need to reach out to the appropriate laboratory to request his results be forwarded to us so I might have the ability to review and make further medical decision making in his case. He voiced understanding.E10.65: Type 1 diabetes mellitus with hyperglycemia HBA1C (HEMOGLOBIN A1C), BLOOD CMP, SERUM OR PLASMA LIPID PANEL, SERUM MICROALBUMIN/CREATININE, MASS RATIO, URINE TSH + FREE T4, SERUM Gvoke HypoPen 2-Pack 1 mg/0.2 mL subcutaneous auto-injector - Inject 1 mg as needed by subcutaneous route as needed for 1 day. Qty: (2) 0.2 mL syringe Refills: 2 Pharmacy: [id number] Return to Office Evelyn Isaacs MD for Follow Up 15 at [facility] Krystian Colbert on 04/07/2023 at 10:00 AM [place] [facility] [employer] 02/11/2023 08:27:32 Medical Equipment None Reported. Medications Name Sig Start Date Stop Date Status Note LastModified by Organization Details LastModified Time terbinafine HCl 1 % topical cream Apply to affected areas on back/neck BID as directed 02/10 completed Not Available Not Available Not Available nystatin 100,000 unit/mL oral suspension Take 5 mL 4 times a day by oral route for 30 days. 10/07 completed Not Available Not Available Not Available ketoconazol e 2 % shampoo APPLY TO AFFECTED AREAS, LATHER AND LEAVE IN PALCE FOR 5 MINUTES, THEN RINSE OFF WITH WATER ONCE DAILY 10/25 completed Not Available Not Available Not Available famotidine 10 mg tablet 10 mg twice a day by oral route. 06/30 completed Not Available Not Available Not Available loperamide 2 mg capsule 2 mg by oral route. 06/30 completed Not Available Not Available Not Available Glucagon Emergency Kit 1 mg solution for injection 10/25 completed Not Available Not Available Not Available nystatin 100,000 unit/gram topical ointment APPLY TO THE AFFECTED AREA(S) BY TOPICAL ROUTE 2 TIMES PER DAY 10/07 completed Not Available Not Available Not Available prednisone 20 mg tablet 06/30 completed Not Available Not Available Not Available prednisone 5 mg tablet 12/16 completed Not Available Not Available Not Available Lantus U-100 Insulin 100 unit/mL subcutaneou s solution INJECT 30 UNITS QHS OR UTD 12/16 completed Not Available Not Available Not Available penicillin V potassium 500 mg tablet 02/10 completed Not Available Not Available Not Available betamethaso ne valerate 0.1 % lotion 10/25 completed Not Available Not Available Not Available sildenafil 25 mg tablet Take 1 tablet every day by oral route as needed. 10/25 completed Not Available Not Available Not Available triamcinolo ne acetonide 0.1 % topical cream APPLY A THIN LAYER TO THE AFFECTED AREA(S) BY TOPICAL ROUTE 2 TIMES PER DAY 02/10 completed Not Available Not Available Not Available ondansetron 8 mg disintegrat ing tablet MAY DISSOLVE 1 T IN MOUTH QID PRN 10/07 completed Not Available Not Available Not Available ofloxacin 0.3 % ear drops 02/10 completed Not Available Not Available Not Available amoxicillin 875 mg tablet TK 1 T PO BID 03/05 completed Not Available Not Available Not Available Humalog U-100 Insulin 100 unit/mL subcutaneou s solution active Not Available Not Available N ot Available doxycycline monohydrate 100 mg capsule Take 1 capsule twice a day by oral route for 7 days. 03/31 completed Not Available Not Available Not Available cephalexin 500 mg capsule Take 1 capsule every 8 hours by oral route with meals for 5 days. 09/02 completed Not Available Not Available Not Available triamcinolo ne acetonide 0.1 % topical ointment Apply 1 applicati on twice a day by topical route as needed for 7 days. active Not Available Not Available No t Available nystatin 100,000 unit/gram topical cream APPLY EXTERNALL Y TO THE AFFECTED AREA TWICE DAILY 02/10 completed Not Available Not Available Not Available lisinopril 5 mg tablet 5 mg by oral route. active Not Available Not Available No t Available Novolog U-100 Insulin aspart 100 unit/mL subcutaneou s solution ADMINISTE R 200 UNITS UNDER THE SKIN EVERY 72 HOURS DIRECTED 10/26 completed Not Available Not Available Not Available albuterol sulfate HFA 90 mcg/actuati on aerosol inhaler 2 {puff}s by inhalatio n route. 06/30 completed Not Available Not Available Not Available ketoconazol e 2 % topical cream APPLY TOPICALLY TO FOOT DAILY 10/25 completed Not Available Not Available Not Available ondansetron 4 mg disintegrat ing tablet 4 mg by oral route. 06/30 completed Not Available Not Available Not Available dicyclomine 10 mg capsule 10 mg 3 times a day by oral route. 06/30 completed Not Available Not Available Not Available amoxicillin 875 mg-potassiu m clavulanate 125 mg tablet 10/25 completed Not Available Not Available Not Available insulin syringe U-100 with needle 1/2 mL 30 gauge USE 3 TO 6 TIMES D active Not Available Not Available No t Available ciclopirox 1 % shampoo SHAMPOO SCALP OR EARS 1-2 TIMES A WEEK NEEDED 10/25 completed Not Available Not Available Not Available tadalafil 20 mg tablet Take 1 tablet every day by oral route as needed for 30 days. 10/25 completed Not Available Not Available Not Available fluocinolon e 0.01 % scalp oil and shower cap APPLY THIN LAYER TO DAMP SCALP BY TOPICAL ROUTE MASSAGE WELL AND COVER. LEAVE ON FOR 4 HOURS OR OVERNIGHT THEN WASH OFF 02/10 completed Not Available Not Available Not Available BD Ultra-Fine Short Pen Needle 31 gauge x 5/16 10/25 completed Not Available Not Available Not Available OneTouch UltraMini kit 10/25 completed Not Available Not Available Not Available Apidra U-100 Insulin 100 unit/mL subcutaneou s solution USE 1 UNIT PER 6 GRAMS OF CARBS. FOR USE IN INSULIN PUMP 10/07 completed Not Available Not Available Not Available Humalog KwikPen (U-100) Insulin 100 unit/mL subcutaneou s With meals per sliding scale 02/10 completed Not Available Not Available Not Available Humalog KwikPen Insulin 12/20 completed Not Available Not Available Not Available Contour Next Test Strips TEST THREE TIMES DAILY 10/25 completed Not Available Not Available Not Available Selsun Blue (salicylic acid) 3 % shampoo Apply to affected area(s) daily and leave in place for 5-10 minutes prior to showering . 02/10 completed Not Available Not Available Not Available Tresiba FlexTouch U-100 insulin 100 unit/mL (3 mL) subcutaneou s pen Inject 20 units every day by subcutane ous route at bedtime for 90 days. 10/25 completed Not Available Not Available Not Available Dexcom G6 Sensor device USE DIRECTED AND CHANGE EVERY 10 DAYS active Not Available Not Available No t Available Dexcom G6 Sponsorship Coordinator USE DIRECTED 10/25 completed Not Available Not Available Not Available Dexcom G6 Transmitter device USE DIRECTED active Not Available Not Available No t Available AutoSoft XC Infusion Set 23 10/25 completed Not Available Not Available Not Available FreeStyle Samir 14 Day Sensor kit 02/10 completed Not Available Not Available Not Available t:slim X2 subcutaneou s cartridge USE DIRECTED 10/25 completed Not Available Not Available Not Available Gvoke HypoPen 2-Pack 1 mg/0.2 mL subcutaneou s auto-inject or Inject 1 mg as needed by subcutane ous route as needed for 1 day. 10/25 completed Not Available Not Available Not Available Vitals Date Recorded Body height Provider Name an d Address Organization Details Last Updated DateTime 12/15/2022 177.8 cm Not Available [facility] 3 18:01:57 Date Recorded Body height Body mass index (BMI) Body weight Heart rate Body temperature Provider Name and Address Organization Details Last Updated DateTime 02/10/2023 177.8 cm 28.3 kg/m2 06397.13 g 91 /min 97.7 [degF] SHIVA San[place] [employer] [facility] [employer] 3 12:10:56 Date Recorded Body height Body mass index (BMI) Body weight Body temperature Heart rate Oxygen saturation Oxygen saturation in Arterial blood by Pulse oximetry Systolic blood pressure Diastolic blood pressure Provider Name and Address Organization Details Last Updated DateTime 177.8 cm 27.8 kg/m2 94267.9 2 g 98 [degF] 76 /min 98 % 98 % 140 mm[Hg] 86 mm[Hg] Coral Cruz CMA [place] [employer] [facility] [employer] 3 09:12:01 Date Recorded Body weight Body temperature Provider N char and Address Organization Details Last Updated DateTime 10/25/2024 02691.07 g 98 [degF] Deja Parkinson RN [facility] [employer] 10/25/2024 12:03:03 Social History Question Answer Notes LastModified by Organizat ion Details LastModified Time Tobacco Smoking Status Current Every Day Smoker Not Available [facility] 12/15/2022 18:01:17 What Is Your Level Of Alcohol Consumption? Occasional [id number] Information not available 12/15/2022 What Is Your Level Of Caffeine Consumption? Occasional [id number] Information not available 12/15/2022 In The 14 Days Before Symptom Onset, Have You Had Close Contact With A Laboratory-confir med COVID-19 While That Case Was Ill? No [id number] Information not available 12/15/2022 In The 14 Days Before Symptom Onset, Have You Had Close Contact With A Person Who Is Under Investigation For COVID-19 While That Person Was Ill? No [id number] Information not available 12/15/2022 What Type Of Diet Are You Following? REGULAR [id number] Information not available 12/15/2022 What Is Your Current Pack Years? 10-19packyears [id number] Information not available 12/15/2022 How Much Tobacco Do You Smoke? 1 PPW [id number] Information not available 12/15/2022 Has Tobacco Cessation Counseling Been Provided? No [id number] Information not available 12/15/2022 Do You Have Any Dietary Restrictions? No [id number] Information not available 12/15/2022 Do You Or Have You Ever Used Any Other Forms Of Tobacco Or Nicotine? No [id number] Information not available 12/15/2022 Sex: Unknown Functional Status Question Answer Note LastModified by Organizat ion Details LastModified Time What is your exercise level? Occasional [id number] Information not available 12/15/2022 Mental Status None recorded. Family History Relationship Description Onset Age of this Age Resolved Age Notes LastModified by Organization Details LastModified Time Maternal Grandmother Diabetes mellitus [id number] Not available 12/15/2022 18:01:25 Paternal Grandmother Diabetes mellitus [id number] Not available 12/15/2022 18:01:25 Medical History Condition Response BLINDNESS N RHEUMATIC FEVER N MRSA N INFECTIOUS DISEASE N HEART ARRHYTHMIA N LUNG DISEASE/DISORDER N HISTORY OF DRUG ABUSE N INSOMNIA N RADIATION / CHEMOTHERAPY N HIGH CHOLESTEROL / HYPERLIPIDEMIA N HYPERTHYROIDISM N EYE PROBLEMS N BLOOD DISEASES N EDEMA N SURGERY N HYPOTHYROIDISM N SHINGLES N DEPRESSION (INCLUDING POST ) N HAVE YOU BEEN HOSPITALIZED OR SEEN IN [facility] IN THE PAST YEAR ? N STROKE/TIA N THYROID DISEASE N BENIGN PROSTATIC HYPERPLASIA N OBESITY N EXCESSIVE PERSPIRATION N GERD/NAUSEA N ANEURYSM N OSTEOPOROSIS N ARTHRITIS N USE OF BLOOD THINNERS N NO SIGNIFICANT PAST MEDICAL HISTORY N SKIN PROBLEMS Y DIABETES, TYPE Y PARATHYROID DISEASE N BLOOD CLOTS N HEPATITIS / LIVER DISEASE N GOUT N ALZHEIMER'S DISEASE N HERPES N RETINOPATHY N SEIZURES/EPILEPSY N HEADACHES/MIGRAINES Y GI PROBLEMS N Low Testosterone N DIZZINESS N KIDNEY DISEASE N HEART DISEASE/HEART PROBLEMS N AIDS/HIV N LIVER DISEASE N HYPERTENSION N CANCER: SPECIFY N TOURETTE'S N BLOOD TRANSFUSION N ANEMIA/BLOOD DISORDER N ATRIAL FIBRILLATION N AUTOIMMUNE DISEASE N TUBERCULOSIS N GLAUCOMA N Immunizations Vaccine Type Date Status Note Provider [facility] e and Address Organization Details Recorded Time Hib, unspecified formulation 6 completed Petty Kaba APRN [address], [place], [address], [employer] 06/04/2024 14:28:50 Hib, unspecified formulation 6 completed Petty Kaba APRN [address], [place], [address], [employer] 06/04/2024 14:28:50 Hib, unspecified formulation 7 completed Petty Kaba APRN [address], [place], [address], [employer] 06/04/2024 14:28:50 Hib, unspecified formulation [address], [place], [address], [employer] 06/04/2024 14:28:50 IPV 0 completed [address], [place], [address], [employer] 06/04/2024 14:28:50 MMR [address], [place], [address], [employer] [facility] 06/04/2024 14:28:50 MMR 0 completed [address], [place], [address], [employer] 06/04/2024 14:28:50 pneumococcal polysaccharide PPV23 [address], [place], [address], [employer] 06/04/2024 14:28:50 influenza, unspecified formulation [address], [place], [address], [facility] 06/04/2024 14:28:50 influenza, unspecified formulation 6 completed Petty Kaba APRN [address], [place], [address], [facility] 06/04/2024 14:28:51 influenza, unspecified formulation 8 completed Petty Kaba APRN [address], [place], [address], [facility] 06/04/2024 14:28:51 Tdap 6 completed Petty Kaba APRN [address], [place], [address], [facility] 06/04/2024 14:28:51 varicella [address], [place], [address], [facility] 06/04/2024 14:28:51 varicella 7 completed Petty Kaba APRN [address], [place], [address], [facility] 06/04/2024 14:28:51 DTP [address], [place], [address], [facility] 06/04/2024 14:28:51 DTP [address], [place], [address], [facility] 06/04/2024 14:28:51 DTP 6 completed Petty Kaba APRN [address], [place], [address], [facility] 06/04/2024 14:28:51 DTP 7 completed Petty Kaba APRN [address], [place], [address], [facility] [employer] [facility] [employer] [facility] 06/04/2024 14:28:51 OPV [address], [place], [address], [facility] [employer] [facility] [employer] [facility] 06/04/2024 14:28:51 OPV [address], [place], [address], [facility] [employer] [facility] [employer] [facility] 06/04/2024 14:28:51 OPV [address], [place], [address], [employer] [facility] [employer] [facility] 06/04/2024 14:28:51 OPV 7 completed MARY [address], [place], [address], [employer] [facility] [employer] [facility] 06/04/2024 14:28:51 Influenza, split virus, trivalent, preservative [address], [place], [address], [employer] [facility] [employer] [facility] 06/04/2024 14:28:51 Hep B, adolescent or pediatric [address], [place], [address], [employer] [facility] [employer] [facility] 06/04/2024 14:28:51 Hep B, adolescent or pediatric [address], [place], [address], [employer] [facility] [employer] [facility] 06/04/2024 14:28:51 Hep B, adolescent or pediatric [address], [place], [address], [employer] [facility] [employer] [facility] 06/04/2024 14:28:51 Hep A, ped/adol, 2 dose 6 completed Petty Kaba, [employer]CRE[employer] PR[employer]ING EQUIPMENT [employer]TER [address], [place], [address], [employer] 06/04/2024 14:28:51 meningococcal MCV4P 8 completed Petty Kaba, [employer] EQUIPMENT [employer]TER [address], [place], [address], [employer] 06/04/2024 14:28:51 DTaP 0 completed Petty Kaba, SCRE[employer] PR[employer]ING EQUIPMENT SETTER [address], [place], [address], [employer] 06/04/2024 14:28:51 Past Encounters Encounter ID Performer Location Encounter Start Date Encounter Closed Date Diagnosis/Indication Diagnosis SNOMED-CT Code Diagnosis ICD10 Code Diagnosis Note [id number] [facility] [address] [place] [address] 10/27/2021 00:00:00 10/27/2021 19:38:10 [id number] [facility] [address] [place] [address] 02/10/2022 00:00:00 02/10/2022 17:44:24 [id number] [facility] [address] [place] [address] 08/05/2022 00:00:00 08/05/2022 20:05:18 [id number] [facility] [address] [place] [address] 09/02/2022 00:00:00 09/02/2022 11:12:46 [id number] [facility] [address] [facility] [address] [place] [address] 12/02/2022 00:00:00 12/12/2022 15:17:35 [id number] Evelyn Isaacs MD [facility] [address] [place] [address] 02/10/2023 11:49:59 02/10/2023 12:45:23 Uncontrolled type 1 diabetes mellitus 132274570 E10.65 a1c of 11.5% but from November prior to going on T slim pump- will have patient repeat labwork in 4-6 weeks on new setting changes and RTC in 2 months Wll adjust settings as follows:12 am to 7 am at 0.8 u/hr7 am to noon at 0.6 u/hrnoon to 12 am at 0.7 u/hrCut carb ratio down to 1:10 for lunch and dinner and keep 1:12 for breakfast Recommende d patient drink a protein shake before his workouts and do not bolus to help with glucose control. We have increased his setting by 10% during workout timeframe to help compensate for hyperglyce sunshine. Will provide GVoke glucagon pen to help with any acute hypoglycem ia that cannot be corrected with oral glucose. Spent up to 21 minutes preparing to see the patient (eg, review of tests), obtaining and/or reviewing separately obtained history, performing a medically appropriat e examinatio n and evaluation , counseling and educating the patient, ordering medication s, tests, along with documentin g clinical informatio n in the electronic health record, independen tly interpreti ng results and communicat ing results to the patient. RTC in 2 months. Patient was provided a handwritte n lab order which contains our fax number. If he chooses to go outside of the [facility] system to obtain labwork he was advised to provide our fax number and my informatio n to the lab he will be obtaining labwork from in order to have his labs properly forwarded over for me to review so there is no loss of follow up due to use of outside network. He was also advised to contact our clinic informing us that he has completed his labwork so we are aware we will need to reach out to the appropriat e laboratory to request his results be forwarded to us so I might have the ability to review and make further medical decision making in his case. He voiced understand ing. [id number] Mariely Ramires MD [facility] Betzaida rucker [address] [facility] [address] [place] [address] 04/26/2023 09:48:44 04/26/2023 13:31:35 [id number] KELLY Ruiz [facility] Primary Care [facility] [address] [facility] [address] [place] [address] 05/16/2023 09:07:52 05/16/2023 10:31:25 Erectile dysfunction due to type 2 diabetes mellitus 243834844 N52.1 Has had issues with ED and low amount of ejaculatio n for a month. Will trial tadalafil Type 1 elidia betes mellitus 64190338 E10.8 Semen volu me low: 0.5-1 ml 798941228 R86.8 [id number] KELLY Wilkerson [facility] Primary Care [facility] [address] [facility] [address] [place] [address] 10/25/2024 12:00:01 10/25/2024 12:30:27 Adult health examination 201557413 Z00.00 Discussed medication compliance and routine follow up.Discuss ed healthy diet and routine exercise.R lizzieiewed vaccine records and made recommenda tions as needed.Enc ouraged annual eye and dental exams, as well as twice yearly dental cleanings. Will check screening labs as listed below. Hepatitis C screening 41 8526025 Z11.59 Screening for cardiovascular system disease 690684414 Z13.6 Uncontroll ed type 1 diabetes mellitus 302461037 E10.65 Will continue to fill medication s as listed below while patient waits for new endocrinol ogist appt. Will check labs as listed below. Health Concerns Section Related Observation LastModified by Organization Detai ls LastModified Time None Recorded Concern Status LastModified by Organization Details LastModified Time None Recorded Advance Directives Directive None Recorded Payers Encounter Date Sequence Insurance Name Policy Number Policy Duran Covered Member ID Duran Member ID Guarantor Name 02/10/2023 1 [employer] [id number] Lamonte Pfeiffer [id number] Lamonte Pfeiffer 04/26/2023 1 [place] [id number] Lamonte Pfeiffer [id number] Lamonte Pfeiffer 05/16/2023 1 [place] [id number] Lamonte Pfeiffer [id number] Lamonte Martin Kentrell 10/25/2024 1 [facility]: (PPO) [id number] F Ingrid Dela Cruz Chamil [id number] Lamonte Martin Kentrell Notes Date Note Type Note Provider Name and Address Organization Details Recorded Time 02/10/2023 text/html 27 yo male comes in for follow up in management of poorly controlled type I DM (A1C of 11.6%) found to have significant proteinuria. last seen in Aug/initial visit: at that time we had patient transition to tresiba due to long acting duration of effect and decreased frequency of hypoglycemia associated with it. Start at 20 units once daily at bedtime and patient advised to titrate up or down by 2 units every 4 days until fasting glucose is running 90-120 mg/dL consistently.He was advised to follow a 1:15 carb ratio for her meals if he is eating a starchy carb diet in addition to correction of 1U:50>150 mg/dl on premeal FS prior to meals. we discussed transition to t slim pump and provided dexcom for sensor and glucagon pen for rescue if needed. He has T slim for past 3-4 weeks. He was over 300 mg/dL consistently before going on T slim pump. He is over 200 mg/dL in morning.Day sugars are usually are around 110-120 mg/dL labs from 12/09:191/105/48/122glu cose 405 mg/dLCr normalLFT normalcpeptide <0.1 ng/mLa1c of 11.6%191/105/48/122TSH of 0.933 uIU/mlmicroalbumin 332 ug/mg Evelyn Isaacs MD [address], [facility] [address], [place], [address], [place] [facility] [employer] [facility] 02/10/2023 13:21:54 05/16/2023 text/html Pt is here with complaints of ED r/t diabetes. C/o issues with ejaculation/amount. Been an issue for about a month. Has discussed these issues with his endocrinologists but is currently awaiting an appt. Diabetic control has been off and on . Would like to obtain A1c and urine prior to his endocrinology appt. KELLY Ruiz [address], [facility] [address], [place], [address], [facility] [employer] [facility] 05/16/2023 10:30:38 10/25/2024 text/html Patient is a 29 year old male that presents to the office to establish care. Patient was previously seeing EARL Ruiz, last appt in 2022. Patient reports his blood sugars are typically 90-180 when he is taking Humalog however when he has to buy insulin OTC his blood sugar runs 170-330. Patient is up to date on diabetic eye and foot exam.Patient is needing a new referral for endocrinology. Patient denies any other concerns at this time. [id number] EARL Butts-C [address], [facility] [address], [place], [address], [employer] [facility] 10/30/2024 16:05:54
--- OUTSIDE RECORDS SUMMARY | 2024-11-23 12:55 | XMS_ITS | Clinical Summary ---
Author Organization [facility] Address [address] [place] [address] Care Team Providers Care Stitch Bonding Machine Drawer In Name Role Phone Brad Pillai NP Primary Care Provider [phone] Allergies No known active allergies Medications NovoLOG U-100 Insulin aspart 100 unit/mL injection 0 Active albuterol HFA (PROVENTIL HFA,VENTOLIN HFA,PROAIR HFA) 90 mcg/actuation inhalerIndicati ons:Influenza A Inhale 2 puffs every 6 (six) hours as needed for wheezing or shortness of breath 1 Inhaler 0 Active Active Problems No known active problems Encounters Date Type Department Care Team Description 10/26/2024 Telephone [facility] Specialists of [address] [address] Jason Lawton MD from Last 3 Months Medical History Medical History Date Comments Diabetes mellitus (HCC) Social History Tobacco Use Types Packs/Day Years Used Date Smoking Tobacco: Some Days Cigars Smokeless Tobacco: Never Comments:Occasional cigar Personal Safety Answer Date Recorded Getting School Help Needed Not on file 12/30 Sex and Gender Information Value Date Recorded Sex Assigned at Not on file 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 Gender Identity Not on file Sexual Orientation Not on file Obstetrics History Last Filed Vital Signs Vital Sign Reading Time Taken Comments Blood Pressure 144/78 07/25/2020 2:40 PM CDT Pulse 96 07/25/2020 2:40 PM CDT Temperature 36.5 C (97.7 F) 07/25/2020 2:40 PM CDT Respiratory Rate 16 07/25/2020 2:40 PM CDT Oxygen Saturation 96% 07/25/2020 2:40 PM CDT Inhaled Oxygen Concentration - - Weight 83.9 kg (185 lb) 07/25/2020 2:40 PM CDT Height 175.3 cm (5' 9 ) 07/25/2020 2:40 PM CDT Body Mass Index 27.32 07/25/2020 2:40 PM CDT Plan of Treatment Not on file Insurance ice OOS Care Teams Stitch Bonding Machine Drawer In Relationship Specialty Start Date End Date Brad Pillai NP PCP - General 01/28/17
--- OUTSIDE RECORDS SUMMARY | 2024-11-23 12:55 | XMS_ITS | Clinical Summary ---
Author Organization [facility] Address [address] [facility] [address] [place] [address] Phone Care Team Providers Care Orchestrator Name Role Phone Violetta Schmid SENIOR INTERACTIVE PRODUCER-Carin Primary Care Provider [phone] Allergies No known active allergies Medications lisinopril 5 MG tablet Take 1 tablet (5 mg total) by mouth 1 (one) time each day 30 tablet 5 025 Active insulin lispro (HumaLOG) 100 UNIT/ML patient supplied pump Inject under the skin continuously Active Insulin Degludec (Tresiba) 100 UNIT/ML solution Inject 30 Units under the skin at bed time Active ergocalciferol (Drisdol) 1.25 MG (25682 UT) capsule Take 1 capsule (50,000 Units total) by mouth 1 (one) time per week for 8 doses 8 capsule 5 025 Active Insulin Aspart (NovoLOG) 100 UNIT/ML solution Inject 1 Units under the skin in the morning and 1 Units at noon and 1 Units in the evening. Inject with meals. Takes on a sliding scale. 0 025 Discontin ued(Med List Maintenan ce) lisinopril 5 MG tablet Take 1 tablet (5 mg total) by mouth 1 (one) time each day 30 tablet 11 3 025 Discontin ued(Reord er (does not appear on AVS)) Active Problems Problem Noted Date Diagnosed Date Proteinuria 06/30/2023 Type 1 diabetes mellitus without complication 06/28/2023 Encounters Date Type Department Care Team Description 11/22/2024 1:45 PM SECURITY CONTROL CENTER OPERATOR Office Visit [facility], [address] [phone] Danitza Asencio MD Proteinuria, not otherwise specified (Primary Dx); Type 1 diabetes mellitus without complication, not otherwise specified (HCC) 11/22/2024 Travel 11/09/2024 Refill [facility], [address] [address] Hoa Byrne, RESIDENT DIRECTOR 11/02/2024 Documentation Only [facility], [address] [address] Danitza Asencio MD 11/02/2024 Documentation Only [facility], [address] [address] Danitza Asencio MD 09/27/2024 Refill [facility], [address] [address] Danitza Asencio MD from Last 3 Months Family History Medical History Relation Comments Cancer Maternal Grandfather Diabetes Maternal Grandmother Diabetes Mother Stroke Mother Relation Status Comments Father Alive Maternal Grandfather Maternal Grandmother Mother Alive Social History Tobacco Use Types Packs/Day Years Used Date Smoking Tobacco: Some Days Cigarettes Smokeless Tobacco: Never Tobacco Cessation:Ready to Q uit: Not Asked; Counseling Given: Not Answered Alcohol Use Standard Drinks/Week Comments Never 0 (1 standard drink = 0.6 oz pur e alcohol) Sex and Gender Information Value Date Recorded Sex Assigned at Not on file Legal Sex Male 11:39 AM EDT Gender Identity Not on file Sexual Orientation Not on file Last Filed Vital Signs Vital Sign Reading Time Taken Comments Blood Pressure 150/98 11/22/2024 1:46 PM SECURITY CONTROL CENTER OPERATOR Pulse 109 11/22/2024 1:46 PM SECURITY CONTROL CENTER OPERATOR Temperature 37 C (98.6 F) 11/22/2024 1:46 PM SECURITY CONTROL CENTER OPERATOR Respiratory Rate 20 11/22/2024 1:46 PM SECURITY CONTROL CENTER OPERATOR Oxygen Saturation 97% 11/22/2024 1:46 PM SECURITY CONTROL CENTER OPERATOR Inhaled Oxygen Concentration - - Weight 92.5 kg (204 lb) 11/22/2024 1:46 PM SECURITY CONTROL CENTER OPERATOR Height 177.8 cm (5' 10 ) 11/22/2024 1:46 PM SECURITY CONTROL CENTER OPERATOR Body Mass Index 29.27 11/22/2024 1:46 PM SECURITY CONTROL CENTER OPERATOR Plan of Treatment Upcoming Encounters Date Type Department Care Team (Late st Contact Info) Description 05/23/2025 12:45 PM CDT Office Visit [facility], [facility] [address] [phone] [place] [address] [facility] [address] [place] [address] Health Maintenance Due Date Last Done Comments Pneumococcal Vaccine: Pediat rics (0 to 5 Years) and At-Risk Patients (6 to 64 Years) (2 of 3 - PCV) 10/04/1998 10/04/1997 Diabetes: Ophthalmology Exam 06/10/2023 Diabetes: Pedal Pulse Checked 06/10/2023 Diabetes: Sensory Foot Exam 06/10/2023 Diabetes: Visual Foot Exam 06/10/2023 Influenza Vaccine (#1) 2024 8, 06/26/1997, 08/07/1996 Diabetes: Hemoglobin A1C 01/23/2025 025, 12/02/2022, 08/29/2017, Additional history exists Hepatitis B Vaccine Completed 04/16/1996, 1995, 1995 Procedures Procedure Name Priority Date/Time Associated Diagnosis Comments EXT RESULT ENTRY Routine 10/25/2024 from Last 3 Months Results * (ABNORMAL) EXT RESULT ENTRY (10/25/2024) WBC 6.1 3.3 - 10.0 10*3/ML Red Blood Cell Count 5.09 Hemoglobin 14.4 13.5 - 17.5 Hematocrit 44.5 41.0 - 53.0 Platelets 317 150 - 399 10*3/UL MCV 87.4 82.0 - 108.0 Sodium 131(A) 137 - 147 Potassium 5.1 3.4 - 5.5 Chloride 99.0 99.0 - 108.0 Carbon Dioxide 28 mmol/L Anion Gap 9.1 <=30 MMOL/L Glucose 185 60 - 200 BUN 13 4 - 21 mg/dL Creatinine 1.04 0.60 - 1.30 mg/dL Total Protein 6.4 6.4 - 8.2 G/DL Albumin 3.8 3.5 - 5.0 g/dL Calcium 6.4(A) 8.7 - 10.7 mg/dL eGFR >60 Vitamin D, 25-OH, Total 12.8(L) ng/mL Hemoglobin A1C 11.8(A) 4.0 - 6.0 Microalbumin Urine Random (External Result Entry) 371.3(H) Triglycerides 110 Cholesterol, Total 189 HDL 50 mg/dL LDL-Calculated 117 Hepatitis B Core Ab, IgM NONREACTIVE 10/25/2024 Historical Provider LAB BLOOD ORDERABLES Inna l Result from Last 3 Months Insurance [facility] [place] [facility] [place] Care Teams Orchestrator Relationship Specialty Start Date End Date Violetta Schmid, EARL-C [address] [place] [address] PCP - General Family Medicine 11/22/24
--- OUTSIDE RECORDS SUMMARY | 2024-11-23 12:55 | XMS_ITS | Referral Summary ---
Author Organization [facility] Address [address] [place] [address] Care Team Providers Care Check Examiner Name Role Phone Brad Pillai NP Primary Care Provider [phone] Encounters Date Type Department Care Team Description 10/26/2024 Telephone [facility] Specialists of [address] [address] Jason Lawton MD from Last 3 Months Allergies No known active allergies Medications NovoLOG U-100 Insulin aspart 100 unit/mL injection 0 Active albuterol HFA (PROVENTIL HFA,VENTOLIN HFA,PROAIR HFA) 90 mcg/actuation inhalerIndicati ons:Influenza A Inhale 2 puffs every 6 (six) hours as needed for wheezing or shortness of breath 1 Inhaler 0 Active Active Problems No known active problems Social History Tobacco Use Types Packs/Day Years Used Date Smoking Tobacco: Some Days Cigars Smokeless Tobacco: Never Comments:Occasional cigar Personal Safety Answer Date Recorded Getting School Help Needed Not on file 12/30 Sex and Gender Information Value Date Recorded Sex Assigned at Not on file Legal Sex Male 10:33 AM HEARING AID REPAIR TECHNICIAN Gender Identity Not on file Sexual Orientation [...] Plan of Treatment Not on file Insurance SocialRep OOS Care Teams Check Examiner Relationship Specialty Start Date End Date Brad Pillai NP PCP - General 01/28/17
--- OUTSIDE RECORDS SUMMARY | 2024-11-23 12:55 | XMS_ITS | Encounter Summary ---
Author Organization [facility] [employer] [facility] , [facility] Address [address] [place] [phone] Phone Care Team Providers Care Railroad Surveyor Name Role Phone Violetta Schmid Mary DRY BOX OPERATOR-C Primary Care Provider [phone] Encounter Details Date Type Department Care Team (Late st Contact Info) Description 11/22/2024 1:45 PM DISTRICT SCOUT EXECUTIVE Office Visit [facility], [address] [address] [place] [address] [facility] [address] [place] [address] Proteinuria, not otherwise specified (Primary Dx); Type 1 diabetes mellitus without complication, not otherwise specified (HCC) Social History Tobacco Use Types Packs/Day Years Used Date Smoking Tobacco: Some Days Cigarettes Smokeless Tobacco: Never Alcohol Use Standard Drinks/Week Comments Never 0 (1 standard drink = 0.6 oz pur e alcohol) Sex and Gender Information Value Date Recorded Sex Assigned at Not on file Legal Sex Male 11:39 AM EDT Gender Identity Not on file Sexual Orientation Not on file documented as of this encounter Last Filed Vital Signs Vital Sign Reading Time Taken Comments Blood Pressure 150/98 11/22/2024 1:46 PM DISTRICT SCOUT EXECUTIVE Pulse 109 11/22/2024 1:46 PM DISTRICT SCOUT EXECUTIVE Temperature 37 C (98.6 F) 11/22/2024 1:46 PM DISTRICT SCOUT EXECUTIVE Respiratory Rate 20 11/22/2024 1:46 PM DISTRICT SCOUT EXECUTIVE Oxygen Saturation 97% 11/22/2024 1:46 PM DISTRICT SCOUT EXECUTIVE Inhaled Oxygen Concentration - - Weight 92.5 kg (204 lb) 11/22/2024 1:46 PM DISTRICT SCOUT EXECUTIVE Height 177.8 cm (5' 10 ) 11/22/2024 1:46 PM DISTRICT SCOUT EXECUTIVE Body Mass Index 29.27 11/22/2024 1:46 PM DISTRICT SCOUT EXECUTIVE documented in this encounter Patient Instructions * Patient Instructions* Danitza Asencio MD - 11/22/2024 1:45 PM DISTRICT SCOUT EXECUTIVE Thank you for visiting the clinic. Your kidney function is stable which is great! We need to make sure your diabetes is under excellent control. Please follow the diabetic diet Please monitor your blood pressure once in the morning before breakfast and once in the evening before dinner. Do this daily for 2 weeks. Goal blood pressures less than 130/80. If it is higher than this after 2 weeks, please contact my office. If it is normal, then continue monitoring your blood pressures weekly. Once your vitamin D prescription runs out, please start over the count vitamin D 1000 units daily Please call us if you have any questions documented in this encounter Progress Notes * Danitza Asencio MD - 11/22/2024 1:45 PM CST Images from the original note were not included. CC: Dr. Schmid, Violetta Hernandez, DRY BOX OPERATOR-C ASSESSMENT/PLAN: ? Proteinuria (seeverely increased albuminuria) in T1DM UAC today -- Follows endo for DM management -- recommend strict glycemic control -- low dose lis 5 mg (informed patient about major side effects such as angioedema ; was off of it for 9 months) -- repeat UPC, UAC and RFP prior to next visit -- Avoid nephrotoxic medications including NSAIDS -- Aggressive DM management (HbA1c goal < 7) T1DM A1c 11.8 (10/25/24); 1.6 (12/02/22) -- on isulin -- follows endo -- reminded importance of diabetic diet BMD Vit D 12.8 (10/25/24) -- prescribe ergo 06036 units weekly for 8 weeks? HLD: Labs 12/09: Total 191, LDL 122, HDL 48, TG 105 ? Mr.Bradley Veronica Pfeiffer will follow up in 6 mo. SUBJECTIVE: Mr. Lamonte Pfeiffer is a 29 y.o. 2-Black or male with a PMHx significant for poorly controlled T1DM who has been referred to see us due to significant proteinuria. He was diagnosed with DM at the age of 11. He had a UAC of 540 mcg/mg on 05/08/23, worsening from 332 mcg/mg on 12/02/22. States that he had issues with insulin medication due to insurance coverage, but now has a job and has been more regular with his medications for the past few months. Plays and coaches basketball and football. He is a [employer] fan Pt last saw me on 06/30/24. No ER or UC visit since. Pt just got back on the lisinopril (was off from it for around 9 months). Has better insurance. He denies photosensitivity, pleuritic cp, rash, sob, n/v, joint pain or any other significant complaint No FH of renal disease Smokes cigars and marijuana rarely. A 12 point review of systems is otherwise negative. Past Medical History: Past Medical History: Diagnosis Date Type 1 diabetes mellitus (HCC) Allergies: No Known Allergies Medications: Current Outpatient Medications on File Prior to Visit Medication Sig Dispense Refill insulin lispro (HumaLOG) 100 UNIT/ML patient supplied pump Inject under the skin continuously lisinopril 5 MG tablet Take 1 tablet (5 mg total) by mouth 1 (one) time each day 30 tablet 0 Insulin Degludec (Tresiba) 100 UNIT/ML solution Inject 30 Units under the skin at bed time [DISCONTINUED] Insulin Aspart (NovoLOG) 100 UNIT/ML solution Inject 1 Units under the skin in the morning and 1 Units at noon and 1 Units in the evening. Inject with meals. Takes on a sliding scale. No current facility-administered medications on file prior to visit. Family History: family history includes Cancer in his maternal grandfather; Diabetes in his maternal grandmother and mother; Stroke in his mother. Social History: reports that he has been smoking cigarettes. He has never used smokeless tobacco. He reports that he does not drink alcohol and does not use drugs. EXAM: BP 150/98 (BP Location: Left upper arm, Patient Position: Sitting) Pulse 109 Temp 98.6 ??F Resp 20 Ht 5' 10 (1.778 m) Wt 204 lb (92.5 kg) SpO2 97% BMI 29.27 kg/m?? NAD, normocephalic, atraumatic No JVD, moist oropharynx +S1, +S2, no murmur Lungs BL CTA, no wheezes, rhonchi or rales appreciated Abdomen benign, nontender LE without edema Skin without petechae, purpura or livido Mood and affect appropriate AAO x 3, No focal neurologic deficits RESULTS: Chemistry Lab Units 10/25/24 0000 12/02/22 0000 CREATININE mg/dL 1.04 0.93 EGFR -- >60 EGFRAFR >60 -- BUN mg/dL 13 17 SODIUM 131* 134* POTASSIUM 5.1 4.7 CHLORIDE 99.0 101.0 CO2 mmol/L 28 23 CALCIUM mg/dL 6.4* 9.1 ALK PHOS U/L -- 165 VIT D 25 HYDROXY ng/mL 12.8* -- ALBUMIN g/dL 3.8 4.0 HEMOGLOBIN A1C 11.8* 11.6* CHOLESTEROL TOTAL 189 191 LDL CALC 117 122 HDL mg/dL 50 48 TRIGLYCERIDES 110 105 Labs Lab Units 10/25/24 0000 HEMOGLOBIN 14.4 PLATELETS AUTO 10*3/UL 317 Thank you for allowing me to participate in the care of your patient. Sincerely, Danitza Asencio MD documented in this encounter Plan of Treatment Upcoming Encounters Date Type Department Care Team (Late st Contact Info) Description 05/23/2025 12:45 PM CDT Office Visit [facility] [address] [phone] [place] [address] [facility] [address] [place] [address] Scheduled Orders Name Type Priority Associated Diagnoses Orde r Schedule Urine Albumin / Creatinine Ratio Lab Routine Proteinuria, not otherwise specified Expected: 11/23/2024, Expires: 12/20/2025 Protein, Total, Random Urine w/Creatinine (Protein/Creat Ratio) Lab Routine Proteinuria, not otherwise specified Expected: 11/22/2024, Expires: 12/20/2025 PTH, Intact Lab Routine Proteinuria, not otherwise specified Expected: 11/22/2024, Expires: 12/20/2025 CBC and Differential Lab Routine Proteinuria, not otherwise specified Expected: 11/22/2024, Expires: 12/20/2025 Hemoglobin A1c Lab Routine Proteinuria, not otherwise specified Expected: 11/22/2024, Expires: 12/20/2025 Iron Panel (Fe, TIBC, TSAT) Lab Routine Proteinuria, not otherwise specified Expected: 11/22/2024, Expires: 12/20/2025 Urine Albumin / Creatinine Ratio Lab Routine Proteinuria, not otherwise specified Expected: 11/23/2024, Expires: 12/20/2025 Protein, Total, Random Urine w/Creatinine (Protein/Creat Ratio) Lab Routine Proteinuria, not otherwise specified Expected: 11/22/2024, Expires: 12/20/2025 PTH, Intact Lab Routine Proteinuria, not otherwise specified Expected: 11/22/2024, Expires: 12/20/2025 Renal Function Panel Lab Routine Proteinuria, not otherwise specified Expected: 11/22/2024, Expires: 12/20/2025 Vitamin D 25 Hydroxy Lab Routine Proteinuria, not otherwise specified Expected: 11/22/2024, Expires: 12/20/2025 documented as of this encounter Visit Diagnoses Diagnosis Proteinuria, not otherwise specified- Primary Type 1 diabetes mellitus without complication, not otherwise specified (HCC) documented in this encounter Care Teams Railroad Surveyor Relationship Specialty Start Date End Date Violetta Schmid FNP-C [address] [place] [address] PCP - General Family Medicine 11/22/24 documented as of this encounter
--- OUTSIDE RECORDS SUMMARY | 2024-11-23 12:55 | XMS_ITS | Encounter Summary ---
Author Organization [facility] Facility Address [address] [facility] [address] [place] [address] Care Team Providers Care Jalousies Installer Name Role Phone Violetta Schmid-Carin Primary Care Provider [phone] Encounter Details Date Type Department Care Team (Latest Contact Info) Description 11/22/2024 Travel Social History Tobacco Use Types Packs/Day Years [...] on file documented as of this encounter Plan of Treatment Upcoming Encounters Date Type Department Care Team (Late st Contact Info) Description 05/23/2025 12:45 PM CDT Office Visit [facility], [address] [address] [place] [address] [facility] [address] [place] [address] documented as of this encounter Visit Diagnoses Not on filedocumented in this encounter Care Teams Jalousies Installer Relationship Specialty Start Date End Date Violetta Schmid FNP-C [facility] Family Practice [address] [place] [address] PCP - General Family Medicine 11/22/24 documented as of this encounter
--- OUTSIDE RECORDS SUMMARY | 2024-11-23 12:55 | XMS_ITS | CONTINUITY OF CARE DOCUMENT ---
Author Name michael rodriguez Address Unknown Organization [facility] Address [address] [place] [address] [address] [place] [address] Phone [phone] Care Team Providers Care Hr Receptionist Name Role Phone Diane Mendez MD N Unavailable KILEY ALVARES Unavailable KILEY ALVARES Unavailable INSURANCE PROVIDERS Payer name Policy type / Coverage type [place] red democrat ID GENET MEDICAID (2) Medicaid [id number]
--- OUTSIDE RECORDS SUMMARY | 2024-11-23 12:57 | XMS_ITS | CONTINUITY OF CARE DOCUMENT ---
Author Name michael rodriguez Address Unknown Organization [facility] Address [address] [place] [address] [address] [place] [address] Phone [phone] Care Team Providers Care Eligibility Manager Name Role Phone Diane Mendez MD N Unavailable KILEY ALVARES Unavailable KILEY ALVARES Unavailable [phone] INSURANCE PROVIDERS Payer name Policy type / Coverage type [place] red democrat ID GENET MEDICAID (2) Medicaid [id number]
--- NOTE | 2024-11-23 13:11 | ED_ITS ---
HPI - General Adult General Chief complaint: Unspecified Stated complaint: blood pressure check Time Seen by Provider: 11/23/24 13:11 Source: patient Mode of arrival: ambulatory Limitations: no limitations History of Present Illness HPI narrative: 29 yo M here for BP check. 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 Was told to buy a home monitor and check BP at home. Today 150s to 200s. thinks his machine might not be working right. Feels ok. No CP or SOB. NO headahce. Recently restarted lisinopril. All systems reviewed and negative except as noted above. Related Data Home Medications ?Medication ?Instructions ?Recorded ?Confirmed ?Last Taken ?Type insulin aspart U-100 100 unit/mL 1 sliding scale dose subcut 03/14/20 08/16/24 Unknown History subcutaneous solution (Novolog USEASDIRECTD U-100 Insulin aspart) insulin lispro 100 unit/mL 08/16/24 Unknown History subcutaneous solution (Humalog U-100 Insulin) lisinopril 5 mg tablet 5 mg PO DAILY 08/16/24 08/16/24 Unknown History Allergies Allergy/AdvReac Type Severity Reaction Status Date / Time No Known Allergies Allergy Verified 11/23/24 13:00 Review of Systems Review of Systems: CONSTITUTIONAL: Denies fever, chills, or sweats. EYES: Denies visual changes, redness, or discharge. ENT: Denies rhinorrhea, congestion, sore throat, or otalgia. CARDIOVASCULAR: Denies chest pain, palpitations, or edema. RESPIRATORY: Denies cough or dyspnea. GASTROINTESTINAL: Denies abdominal pain, nausea, vomiting, or diarrhea. GENITOURINARY: Denies dysuria or hematuria. SKIN: Denies rash or itching. MUSCULOSKELETAL: Denies back pain, joint pain, or myalgia. NEUROLOGIC: Denies headache, numbness, or weakness. PSYCHIATRIC: Denies anxiety or depression. All other systems reviewed are negative, except as documented in HPI. [facility] Past Medical History Medical History (Updated 11/24/24 @ 00:01 by Jose Gates) Hypertension Diabetes mellitus Type I Social History Social History (Updated 08/16/24 @ 09:09 by Deandra Pete NP) Smoking status: Never smoker Gender identity (if verbalized by the patient): Male Comments At time of signature, agree with nursing past medical, surgical, social and family history. There is no relevant family history pertinent to the presenting complaint. Exam Narrative: GENERAL: This is a well-nourished, well-developed patient, in no apparent distress. HEAD: normocephalic, atraumatic. EYES: PERRL. Sclera clear/white. Vision is grossly intact. EARS: External ears normal NOSE: External nose normal NECK: Neck supple, non-tender without lymphadenopathy, masses or thyromegaly. CARDIOVASCULAR: Regular rate and rhythm without murmurs, gallops, or rubs. RESPIRATORY: Clear to auscultation. Breath sounds equal bilaterally. No wheezes, rales, or rhonchi. SKIN: warm, Dry, intact with no suspicious lesions or rash, good texture and turgor. NEURO: awake, alert, and oriented to person, place and time. There were no obvious focal neurologic abnormalities. EXTREMITIES: No joint tenderness, effusion, or edema noted. Course Course Level of Care: Express Care Visit Vital Signs Vital signs: Vital Signs Temperature 36.9 C 11/23/24 12:52 Pulse Rate 95 11/23/24 12:52 Respiratory Rate 16 11/23/24 12:52 Blood Pressure 159/98 H 11/23/24 12:52 Pulse Oximetry 100 11/23/24 12:52 Oxygen Delivery Room Air 11/23/24 12:52 Temperature 36.9 C 11/23/24 12:52 Pulse Rate 95 11/23/24 12:52 Respiratory Rate 16 11/23/24 12:52 Blood Pressure 159/98 H 11/23/24 12:52 Pulse Oximetry 100 11/23/24 12:52 Oxygen Delivery Room Air 11/23/24 12:52 Reviewed Medical Decision Making MDM Narrative Medical decision making narrative: Patient's BP 142/106 manually checked by this and P. Recommend he continue to use home monitor. If blood pressure continues to be high at home home monitor may be inaccurate. Take lisinopril daily, had recently been off medication for several weeks. Will follow-up with his rope coiling machine operator if he continues to get high blood pressure readings on monitor. Please be advised this is a medical document. It is intended for [id number] communication. It is written in medical language and may contain unfamiliar abbreviations or verbiage. Medical documents are intended to carry relevant information, facts as evident, and the clinical opinion of the practitioner at the time of the encounter. This report may have been done utilizing a voice recognition system. Attempts have been made to correct errors. However, there may be uncorrected grammatical, spelling, and recognition errors present. The file time of this note does not necessarily represent the time of service. Vital Signs Vital Signs: Vital Signs Temperature 36.9 C 11/23/24 12:52 Pulse Rate 95 11/23/24 12:52 Respiratory Rate 16 11/23/24 12:52 Blood Pressure 159/98 H 11/23/24 12:52 Pulse Oximetry 100 11/23/24 12:52 Oxygen Delivery Room Air 11/23/24 12:52 Temperature 36.9 C 11/23/24 12:52 Pulse Rate 95 11/23/24 12:52 Respiratory Rate 16 11/23/24 12:52 Blood Pressure 159/98 H 11/23/24 12:52 Pulse Oximetry 100 11/23/24 12:52 Oxygen Delivery Room Air 11/23/24 12:52 Discharge Plan Discharge Clinical Impression: Blood pressure check, Hypertension Patient Disposition: Home, Self-Care Condition: Stable Instructions: Hypertension (ED) Additional Instructions: Your blood pressure was 142/106 today. Continue taking lisinopril daily. Walk for at least 30 minutes a day. Monitor your blood pressure daily. Follow-up with your kidney specialist if you continue to feel that your blood pressure is elevated. Patient Language: Albanian Prescriptions: No Action insulin aspart U-100 [Novolog U-100 Insulin aspart] 100 unit/mL Solution 1 sliding scale dose SUBCUT USEASDIRECTD Rx Instructions: INSULIN PUMP lisinopril 5 mg tablet 5 mg PO DAILY insulin lispro [Humalog U-100 Insulin] 100 unit/mL solution Rx Instructions: as directed albuterol sulfate 90 mcg/actuation HFA aerosol inhaler 2 puff inhalation QID PRN (Reason: shortness of breath or wheezing) Qty: 6.7 0RF Follow-up/Referrals: PHYSICIAN NOT ON STAFF,NONSTAFF [Primary Care Provider] - Time of Disposition: 13:21
== END 2024-11-23 13:23 | disposition home or self-care (01) ==
PROVIDERS: Emergency Provider Nurse Practitioner Family
DX: I10 Essential (primary) hypertension (principal); E10.9 Type 1 diabetes mellitus without complications
CPT/HCPCS: 99212; G0463